=== PATIENT | male | born 1940 | race Caucasian/White ===

== ENCOUNTER → 2024-02-06 | Outpatient (CLI) | payer MEDICARE, BC ==
[~2024-02-06] MED LIST: FLOMAX0.4 MG PO; FUROSEMIDE40 MG PO; GLIPIZIDE ER2.5 MG PO; GLUCOPHAGE PO; LEVOTHYROXIN0.075 MG PO; METOPROLOL SUC200 M1 PO; PANTOPRAZOLE SO40 MG PO; RAMIPRIL2.5 MG PO; SIMVASTATIN40 M1 PO; WARFARIN SOD5 MG PO
== END ==
LOC: RAD 15:26
DX: J98.11 Atelectasis (principal); J90 Pleural effusion, not elsewhere classified; Z95.0 Presence of cardiac pacemaker